=== PATIENT | male | born 1960 | race Hispanic/Latino ===

== ENCOUNTER 2016-12-03 07:42 | Day surgery (SDC) | payer OTHER ==
[2016-12-03 08:14] VITALS: BMI 32.8
--- NOTE | 2016-12-03 09:58 | CP.SDSHP ---
Same Day Surgery H & P - History Proposed Procedure: EGD Pre-Op Diagnosis: SEE NOTES - Previous Medical/Surgical History Neuro: Headaches, Backaches Misc: Other Pain: 4.Moderate Pain - Allergies Allergies: Allergies No Known Allergies Allergy (Verified 12/03/16 08:13) - Physical Exam General Appearance: N Vital Signs: Vital Signs 12/03/16 12/03/16 08:22 08:41 Temperature 97.7 F Pulse Rate 64 64 Respiratory 19 Rate Blood Pressure 118/76 O2 Sat by Pulse 99 Oximetry Mental Status: Alert & Oriented x3 Neuro: WNL Heart: WNL Lungs: WNL GI: Other - {Optional Preform as Required} Breast: WNL Abdomen: Other Rectal: Other Integument: WNL : WNL Ortho: Other ENT: WNL - Impression Pt. Evaluated Today:Candidate for Anesthesia & Procedure: Yes - Date & Time Time: 09:58 Short Stay Discharge - Short Stay Discharge Admitting Diagnosis/Reason for Visit: DYSPEPSIA Disposition: HOME/ ROUTINE
[2016-12-03] MEDS ORDERED: Belladonna-Phenobarbital PO STA (09:59)
[2016-12-03] MEDS ORDERED: Pantoprazole 40 mg EC Tab PO STA (09:59)
[2016-12-03] MEDS ORDERED: Propofol 10 mg/ml Inj (20 ML) ONE (10:03)
[2016-12-03 10:19] VITALS: TEMP 97.4
[2016-12-03 10:34] VITALS: O2SAT 99
[2016-12-03 11:58] VITALS: PULSE 50
[2016-12-03 11:59] VITALS: BP 125/74; RESP 14
== END 2016-12-03 11:30 | disposition home or self-care (01) ==
LOC: C.ENDO 07:42
PROVIDERS: ATTEND Specialist
DX: K20.9 Esophagitis, unspecified (principal); K44.9 Diaphragmatic hernia without obstruction or gangrene; K29.60 Other gastritis without bleeding
CPT/HCPCS: 43239; 88305; J2001; J2704; J7040

== ENCOUNTER 2016-12-05 07:15 | Day surgery (SDC) | payer OTHER ==
[2016-12-05] MEDS ORDERED: Propofol 10 mg/ml Inj (20 ML) ONE (08:24)
--- NOTE | 2016-12-05 08:26 | CP.SDSHP ---
Same Day Surgery H & P - History Proposed Procedure: COLONSCOPY Pre-Op Diagnosis: SEE NOTES - Previous Medical/Surgical History Neuro: Headaches, Backaches Misc: Other Pain: 4.Moderate Pain - Allergies Allergies: Allergies No Known Allergies Allergy (Verified 12/05/16 07:44) - Physical Exam General Appearance: N Vital Signs: Vital Signs 12/05/16 07:45 Temperature 98.6 F Pulse Rate 52 L Respiratory 19 Rate Blood Pressure 114/72 O2 Sat by Pulse 100 Oximetry Mental Status: Alert & Oriented x3 Neuro: WNL Heart: WNL Lungs: WNL GI: Other - {Optional Preform as Required} Breast: WNL Abdomen: Other Rectal: Other Integument: WNL : WNL Ortho: Other ENT: WNL - Impression Pt. Evaluated Today:Candidate for Anesthesia & Procedure: Yes - Date & Time Time: 08:26 Short Stay Discharge - Short Stay Discharge Admitting Diagnosis/Reason for Visit: RECTAL BLEEDING Disposition: HOME/ ROUTINE
[2016-12-05] MEDS ORDERED: Phenylephrine 10 mg/ml Inj ONE (08:32)
[2016-12-05] MEDS ORDERED: Midazolam 2 MG/2 ML VIAL ONE (08:32)
[2016-12-05] MEDS ORDERED: Pantoprazole 40 mg EC Tab PO ONE (08:45)
[2016-12-05 09:00] VITALS: TEMP 97.9
[2016-12-05] MEDS ORDERED: Belladonna-Phenobarbital PO ONE (09:05)
[2016-12-05 10:27] VITALS: O2SAT 100
[2016-12-05 10:31] VITALS: BP 110/61; PULSE 55; RESP 12
== END 2016-12-05 10:30 | disposition home or self-care (01) ==
LOC: C.ENDO 07:15
PROVIDERS: ATTEND Specialist
DX: K52.9 Noninfective gastroenteritis and colitis, unspecified (principal); K60.2 Anal fissure, unspecified; K64.8 Other hemorrhoids; K64.4 Residual hemorrhoidal skin tags; K21.9 Gastro-esophageal reflux disease without esophagitis; R51 Headache; M54.9 Dorsalgia, unspecified; Z98.890 Other specified postprocedural states; Z96.649 Presence of unspecified artificial hip joint; Z79.899 Other long term (current) drug therapy